=== PATIENT | female | born 1980 | race Caucasian/White ===

== ENCOUNTER 2024-07-09 13:00 | Outpatient (CLI) | payer OTHER ==
[~2024-07-09] VITALS: Ht 160 cm; Wt 119.5 kg
[~2024-07-09 13:00] MED LIST: ALBUTEROL SULFATE 2.5MG/0.5ML INH NEB SOLN INH PRN; EPINEPHrine INJ 1 MG/ML 1ML AMP IM PRN; NS 1,000 ML IV SCH
[2024-07-09 13:15] VITALS: BP 170/94; O2SAT 98
[2024-07-09] MEDS: IRON SUCROSE 300 MG in NS 250 ML IV ONE (13:55)
[2024-07-09] MEDS: methylPREDNISolone 125MG 2ML VIAL IV PRN (14:35)
[2024-07-09] MEDS: diphenhydrAMINE 50MG/ML VIAL IV PRN (14:36)
[2024-07-09 16:30] VITALS: BP 174/98; O2SAT 97
== END 2024-07-09 16:30 ==
LOC: M INFU 13:00
PROVIDERS: ATTEND Internal Medicine Hematology
DX: D50.9 Iron deficiency anemia, unspecified (principal)
CPT/HCPCS: 96365; 96366; 96367; J1200; J1756; J2919

== ENCOUNTER 2024-07-23 13:30 | Outpatient (CLI) | payer OTHER ==
[~2024-07-23] VITALS: Ht 162.6 cm; Wt 118.2 kg
[2024-07-23 13:30] VITALS: BP 158/90; O2SAT 98
[~2024-07-23 13:30] MED LIST changes: +diphenhydrAMINE 50MG/ML VIAL IV PRN; +methylPREDNISolone 125MG 2ML VIAL IV PRN
[2024-07-23] MEDS: IRON SUCROSE 300 MG in NS 250 ML IV ONE (14:41)
[2024-07-23 16:55] VITALS: BP 162/100; O2SAT 99
== END 2024-07-23 14:55 ==
LOC: M INFU 13:30 → EDUNIT# 13:30 → M INFU 14:55
PROVIDERS: ATTEND Internal Medicine Hematology
DX: D50.9 Iron deficiency anemia, unspecified (principal)
CPT/HCPCS: 96374; J1756

== ENCOUNTER 2024-08-06 13:35 | Outpatient (CLI) | payer OTHER ==
[~2024-08-06] VITALS: Ht 160 cm; Wt 118.0 kg
[2024-08-06 13:35] VITALS: BP 152/94; O2SAT 97
[~2024-08-06 13:35] MED LIST changes: -NS 1,000 ML IV SCH
[2024-08-06] MEDS: IRON SUCROSE 300 MG in NS 250 ML IV ONE (14:37)
[2024-08-06 16:13] VITALS: BP 153/93; O2SAT 95
== END 2024-08-06 16:15 ==
LOC: M INFU 13:35
PROVIDERS: ATTEND Internal Medicine Hematology
DX: D50.9 Iron deficiency anemia, unspecified (principal)
CPT/HCPCS: 96365; J1756